=== PATIENT | male | born 1985 | race Caucasian/White ===

== ENCOUNTER 2022-06-03 13:27 | Outpatient (REF) | payer BC, SELFPAY ==
[2022-06-03 19:16] LABS: Abs Immature Grans 0.02 10^3/uL (0.0-0.06); Absolute Basophil Count 0.03 10^3/uL (0.0-0.2); Absolute Eosinophil Count 0.08 10^3/uL (0.0-0.7); Absolute Lymphocyte Count 1.59 10^3/uL (1.2-3.4); Absolute Monocyte Count 0.67 10^3/uL (0.1-0.8); Absolute Neutrophil Count 4.43 10^3/uL (1.2-6.7); Basophils % 0.4; Eosinophils % 1.2; HCT 46.7 % (40.0-50.0); HGB 15.3 g/dL (13.5-17.5); Immature Grans % 0.3; Lymphocytes % 23.3; MCH 29.1 pg (27.0-33.0); MCHC 32.8 % (32.0-36.0); MCV 89 fL (80-95); MPV 11.1 fL (8.0-11.0); Monocytes % 9.8; Platelet Count 265 10^3/uL (130-400); RBC 5.26 10^6/uL (4.36-5.78); RDW 12.7 % (11.8-14.1); RDW-SD 41.9 fL; WBC 6.82 10^3/uL (4.4-10.8)
[2022-06-03 19:44] LABS: Hemoglobin A1C 5.6 % (<5.7)
[2022-06-03 19:45] LABS: ALT 105 U/L (16-63); AST 38 U/L (15-37); Albumin 3.9 g/dL (3.4-5.0); Alkaline Phosphatase 120 U/L (46-116); Anion Gap 5.9 mmol/L (3-11); BUN 9 mg/dL (7-18); Bilirubin, Total 0.4 mg/dL (0.2-1.0); CO2 29.1 mmol/L (21.0-32.0); CREATININE 0.9 mg/dL (0.70-1.30); Calcium 8.4 mg/dL (8.5-10.1); Calculated LDL 123 mg/dL (<100); Chloride 101 mmol/L (98-107); Cholesterol 209 mg/dL (<200); Estimated GFR 112.81 (mL/min/1.73m2); Glucose 98 mg/dL (74-106); HDL Cholesterol 31 mg/dL (40-60); Potassium 4.1 mmol/L (3.5-5.1); Sodium 136 mmol/L (136-145); TSH (W/Ref FT4) 1.36 uIU/mL (0.36-3.74); Triglyceride 278 mg/dL (<150)
== END 2022-06-03 13:28 | disposition home or self-care (01) ==
LOC: NCHCN 13:27
PROVIDERS: PCP Nurse Practitioner Family; Visit Provider Physician Assistant
DX: Z00.00 Encounter for general adult medical examination without abnormal findings (principal); R41.3 Other amnesia; E66.8 Other obesity; Z83.3 Family history of diabetes mellitus; Z13.29 Encounter for screening for other suspected endocrine disorder; Z13.1 Encounter for screening for diabetes mellitus; R79.89 Other specified abnormal findings of blood chemistry
CPT/HCPCS: 80053; 80061; 83036; 84443; 85025

== ENCOUNTER 2023-05-20 15:16 | Outpatient (REF) | payer BC, SELFPAY ==
[2023-05-22 09:21] LABS: HIV-1/2 Ag & Ab Screen Negative (Negative)
[2023-05-22 09:32] LABS: Hepatitis B Surface Ag Negative (Negative)
[2023-05-22 09:37] LABS: Hepatitis C Ab w Rflx HCV PCR Negative (Negative)
[2023-05-22 10:19] LABS: Syphilis Serology (RPR) Negative (Negative)
[2023-05-23 15:33] LABS: Chlamydia Result Negative (Negative); GC Result Negative (Negative)
== END 2023-05-20 15:17 | disposition home or self-care (01) ==
LOC: NCHCN 15:16
PROVIDERS: PCP Nurse Practitioner Family; Visit Provider Physician Assistant
DX: R39.15 Urgency of urination (principal); Z11.3 Encounter for screening for infections with a predominantly sexual mode of transmission
CPT/HCPCS: 86803; 87340; 87389; 87491; 87591; 86592

== ENCOUNTER 2025-06-28 19:21 | Outpatient (REF) | payer BC, SELFPAY | END 2025-06-28 19:22 | disposition home or self-care (01) | LOC: LBN 19:21 | PROVIDERS: Visit Provider Nurse Practitioner | DX: R30.0 Dysuria (principal) | CPT/HCPCS: 84154 ==

== ENCOUNTER 2025-06-30 10:20 | Outpatient (REF) | payer BC, SELFPAY ==
[2025-06-30 20:16] LABS: Abs Immature Grans 0.11 10^3/uL (0.0-0.06); HCT 43.4 % (40.0-50.0); HGB 14.5 g/dL (13.5-17.5); Immature Grans % 0.5 %; MCH 29.5 pg (27.0-33.0); MCHC 33.4 % (32.0-36.0); MCV 88 fL (80-95); MPV 11.1 fL (8.0-11.0); Platelet Count 187 10^3/uL (130-400); RBC 4.92 10^6/uL (4.36-5.78); RDW 12.5 % (11.8-14.1); RDW-SD 40.7 fL; WBC 20.96 10^3/uL (4.4-10.8)
[2025-06-30 20:30] LABS: ALT 34 U/L (10-49); AST 22 U/L (<34); Albumin 4.5 g/dL (3.2-5.0); Alkaline Phosphatase 107 U/L (46-116); Anion Gap 10.3 mmol/L (3-11); BUN 7 mg/dL (9-23); Bilirubin, Direct 0.2 mg/dL (<=0.3); Bilirubin, Total 0.7 mg/dL (0.2-1.2); CO2 23.7 mmol/L (20.0-31.0); Calcium 9.1 mg/dL (8.3-10.6); Chloride 105 mmol/L (98-107); Glucose 109 mg/dL (74-106); Potassium 4.0 mmol/L (3.5-5.1); Sodium 139 mmol/L (136-145); Total Protein 7.5 g/dL (5.7-8.2)
[2025-06-30 20:31] LABS: RBC Morphology Normal
[2025-07-04 11:51] LABS: Chlamydia Result Negative (Negative); GC Result Negative (Negative)
[2025-07-04 14:48] LABS: Syphilis IgG w/Reflex Nonreactive (Nonreactive)
== END 2025-06-30 10:21 | disposition home or self-care (01) ==
LOC: NCHCN 10:20
PROVIDERS: Visit Provider Nurse Practitioner
DX: R35.0 Frequency of micturition (principal)
CPT/HCPCS: 80048; 80076; 87077; 87491; 87591; 85025; 86780; 87086; 87186